=== PATIENT | female | born 1955 | race Caucasian/White ===

== ENCOUNTER 2016-06-23 20:01 | Emergency (ER) | payer BC ==
[2016-06-23 21:10] VITALS: BP 134/74
[2016-06-23] MEDS ORDERED: diPHENhydraMINE IV* 50 MG/ML 1 ml VIAL (BENADRYL) IV ONE (21:25)
--- NOTE | 2016-06-23 21:31 | UC ---
Throat Pain/Nasal Andriy HPI - HPI Summary HPI Summary: patient was treated for a sinus infection a little while ago, started feeling better but now is starting to have sinus pressure. no fever. cough is present. - History of Current Complaint Chief Complaint: UCRespiratory Stated Complaint: SORE THROAT,STUFFY NOSE Time Seen by Provider: 06/23/16 21:05 Hx Obtained From: Patient ?: No Onset/Duration: Sudden Onset Severity: Mild Pain Intensity: 6 Pain Scale Used: 0-10 Numeric Cough: Nonproductive Associated Signs & Symptoms: Positive: Dysphagia, Sinus Discomfort, Nasal Discharge - Epiglottits Risk Factors Epiglottis Risk Factors: Negative - Allergies/Home Medications Allergies/Adverse Reactions: Allergies Allergy/AdvReac Type Severity Reaction Status Date / Time Propoxyphene [From Darvon] Allergy Intermediate Hallucinati Verified 06/23/16 21 :05 ons Home Medications: Home Medications guaiFENesin/CODIEN 100MG-10MG* [Robitussin AC 100Mg-10Mg*] 10 ml PO Q4H PRN 08/08 [History Confirmed 06/23/16] PMH/Surg Hx/FS Hx/Imm Hx Cardiovascular History Of: Comment Only: Cardiac Disorders - IRREGULAR RATE BUNDLE. / PT NOT SURE OF DX. Respiratory History Of: Reports: Asthma - EXERCISE INDUCED - Surgical History Surgical History: Yes Surgery Procedure, Year, and Place: APPY. TUBAL /SALPINGECTOMY. KNEE SX. FINGER SX. LAPROSCOPIC SX R/L OVARIAN CYST. ARM FX - Family History Known Family History: Positive: Unknown, Hypertension - Social History Alcohol Use: Rare Substance Use Type: None Smoking Status (MU): Never Smoked Tobacco Review of Systems Constitutional: Negative Skin: Negative Eyes: Negative ENT: Sore Throat, Ear Ache, Nasal Discharge Respiratory: Cough Cardiovascular: Negative Gastrointestinal: Negative Genitourinary: Negative Motor: Negative Neurovascular: Negative Musculoskeletal: Negative Neurological: Headache Psychological: Negative All Other Systems Reviewed And Are Negative: Yes Physical Exam Triage Information Reviewed: Yes Appearance: Well-Appearing, Well-Nourished, Pain Distress Vital Signs: Initial Vital Signs Temp 98.5 F 06/23/16 21:01 Pulse 76 06/23/16 21:01 Resp 16 06/23/16 21:01 BP 134/74 06/23/16 21:01 Pulse Ox 97 06/23/16 21:01 Vital Signs Reviewed: Yes Eye Exam: Normal Eyes: Positive: Conjunctiva Clear ENT Exam: Normal ENT: Positive: Hearing grossly normal, Pharyngeal erythema, TMs normal, TM bulging Dental Exam: Normal Neck exam: Normal Neck: Positive: Supple, Nontender, No Lymphadenopathy Respiratory Exam: Normal Respiratory: Positive: Chest non-tender, Lungs clear, Normal breath sounds Cardiovascular Exam: Normal Cardiovascular: Positive: RRR, No Murmur, Pulses Normal Abdominal Exam: Normal Abdomen Description: Positive: Nontender, No Organomegaly, Soft Bowel Sounds: Positive: Present Musculoskeletal Exam: Normal Musculoskeletal: Positive: Strength Intact, ROM Intact, No Edema Neurological Exam: Normal Neurological: Positive: Alert, Muscle Tone Normal Psychological Exam: Normal Skin Exam: Normal Throat Pain/Nasal Course/Dx - Course Course Of Treatment: history obtained, exam performed, educated on manual drainage technique, medication prescribed. - Differential Dx/Diagnosis Differential Diagnosis/HQI/PQRI: Influenza, Laryngitis, Otitis Media, Pharyngitis, Sinusitis, URI Provider Diagnoses: Sinus pressure. bronchospasm Discharge - Discharge Plan Condition: Stable Disposition: HOME Patient Education Materials: Bronchospasm (ED) Referrals: Alexandra Mcgarry MD [Primary Care Provider] - Additional Instructions: I recommend you continue to use the neti pot once daily. Also use the manual sinus draining technique a few times a day. take the prednisone to relief the inflammation and cough. increase fluid intake and the use of cool mist humidification can also help.
== END 2016-06-23 21:43 | disposition home or self-care (01) ==
LOC: UCCORT 20:01
DX: J34.89 Other specified disorders of nose and nasal sinuses (principal); J98.01 Acute bronchospasm; R13.19 Other dysphagia; Z88.5 Allergy status to narcotic agent
CPT/HCPCS: 99212; G0463

== ENCOUNTER 2017-05-29 13:40 | Emergency (ER) | payer BC ==
[2017-05-29 15:09] VITALS: BP 124/65
--- NOTE | 2017-05-29 15:13 | UC ---
Throat Pain/Nasal Andriy HPI - HPI Summary HPI Summary: TWO WEEKS OF WORSENING SINUS PRESSURE PAIN, POSTNASAL DRIP. NO KNOWN FEVER. TWO DAYS OF SORE THROAT. NO ABDOMINAL PAIN. NO RASHES. - History of Current Complaint Chief Complaint: UCRespiratory Stated Complaint: SINUSES/ST Time Seen by Provider: 05/29/17 14:37 Hx Obtained From: Patient Hx Last Menstrual Period: AGE 54 Onset/Duration: Gradual Onset, Lasting Weeks Severity: Moderate Cough: Nonproductive Associated Signs & Symptoms: Positive: Dysphagia, Hoarseness, Sinus Discomfort, Nasal Discharge - Epiglottits Risk Factors Epiglottis Risk Factors: Negative - Allergies/Home Medications Allergies/Adverse Reactions: Allergies Allergy/AdvReac Type Severity Reaction Status Date / Time Propoxyphene [From Darvon] Allergy Intermediate Hallucinati Verified 05/29/17 14 :38 ons anesthesia AdvReac Vomiting Uncoded 05/29/17 14:39 Home Medications: Home Medications Iodine (Bulk) [Iodine] 1 mis XX 05/29/17 [History] [place]-3 Fatty Acids [Fish Oil 1200 mg] 2 cap PO BID 05/29/17 [History Confirmed 05/29/17] guaiFENesin ER TAB [Mucinex*] 600 mg PO BID PRN 05/29/17 [History Confirmed 02/05] PMH/Surg Hx/FS Hx/Imm Hx Previously Healthy: Yes - Surgical History Surgical History: Yes Surgery Procedure, Year, and Place: APPY. TUBAL /SALPINGECTOMY. KNEE SX. FINGER SX. LAPROSCOPIC SX R/L OVARIAN CYST. ARM FX - Family History Known Family History: Positive: Unknown, Hypertension - Social History Occupation: Employed Full-time Lives: With Family Alcohol Use: Rare Substance Use Type: None Smoking Status (MU): Never Smoked Tobacco - Immunization History Most Recent Influenza Vaccination: NOT IN 2017 Review of Systems Constitutional: Negative Skin: Negative Eyes: Negative ENT: Sore Throat, Sinus Congestion, Sinus Pain/Tenderness Respiratory: Cough Cardiovascular: Negative Gastrointestinal: Negative Genitourinary: Negative Motor: Negative Neurovascular: Negative Musculoskeletal: Negative Neurological: Negative Psychological: Negative Is Patient Immunocompromised?: No All Other Systems Reviewed And Are Negative: Yes Physical Exam Triage Information Reviewed: Yes Appearance: Well-Appearing, No Pain Distress, Well-Nourished Vital Signs: Initial Vital Signs Temp 98.4 F 05/29/17 14:44 Pulse 75 05/29/17 14:44 Resp 18 05/29/17 14:44 BP 124/65 05/29/17 14:44 Pulse Ox 96 05/29/17 14:44 Vital Signs Reviewed: Yes Eye Exam: Normal ENT: Positive: Pharyngeal erythema, Nasal congestion, Nasal drainage, TM bulging , TM dull Dental Exam: Normal Neck exam: Normal Neck: Positive: Supple, Nontender Respiratory Exam: Other - COUGH Respiratory: Positive: Chest non-tender, Lungs clear, Normal breath sounds, No respiratory distress, No accessory muscle use Cardiovascular Exam: Normal Cardiovascular: Positive: RRR, No Murmur, Pulses Normal, Brisk Capillary Refill Abdominal Exam: Normal Abdomen Description: Positive: Nontender, No Organomegaly Musculoskeletal Exam: Normal Musculoskeletal: Positive: Strength Intact, ROM Intact Neurological Exam: Normal Psychological Exam: Normal Skin Exam: Normal Throat Pain/Nasal Course/Dx - Differential Dx/Diagnosis Differential Diagnosis/HQI/PQRI: Pharyngitis, Sinusitis, Tonsillitis, URI Provider Diagnoses: SINUSITIS Discharge - Discharge Plan Condition: Stable Disposition: HOME Prescriptions: Amoxicillin/Clavulanate TAB* [Augmentin TAB 875*] 875 mg PO BID #20 tab Patient Education Materials: Pharyngitis (ED), Sinusitis (ED) Forms: *Work Release Referrals: Alexandra Mcgarry MD [Primary Care Provider] -
== END 2017-05-29 15:13 | disposition home or self-care (01) ==
LOC: UCCORT 13:40
DX: J32.9 Chronic sinusitis, unspecified (principal); Z88.4 Allergy status to anesthetic agent; Z88.5 Allergy status to narcotic agent
CPT/HCPCS: 99212; G0463